=== PATIENT | female | born 1965 | race Caucasian/White ===

== ENCOUNTER 2021-05-06 15:03 | Emergency (ER) | payer MEDICAID ==
[~2021-05-06] VITALS: Ht 162.6 cm; Wt 79.4 kg
[2021-05-06 15:22] VITALS: BP 145/94
[2021-05-06] MEDS ORDERED: ACETAMINOPHEN 325 MG TABLET PO ONE (16:00)
[2021-05-06] MEDS ORDERED: ACETAMINOPHEN ES 500 MG TABLET ONE (16:07)
--- NOTE | 2021-05-06 16:13 | NUR ---
Patient discharged to home in stable condition. Written and verbal after care instructions given. Patient verbalizes understanding of instruction.
== END 2021-05-06 16:14 | disposition home or self-care (01) ==
LOC: ER 15:10
DX: H92.01 Otalgia, right ear (principal); M26.621 Arthralgia of right temporomandibular joint; M26.4 Malocclusion, unspecified